=== PATIENT | female | born 1995 | race Caucasian/White ===

== ENCOUNTER 2018-03-06 04:48 | Inpatient (IN) | payer MEDICAID ==
[~2018-03-06] VITALS: Ht 160 cm; Wt 61.1 kg
[2018-03-06] MEDS ORDERED: DIPH,PERTUSS(ACELL),TET VAC/PF 0.5 ML IM-VACC ONE ×2 (05:00→05:14)
[2018-03-06] MEDS ORDERED: VANCOMYCIN PER PHARMACY IV ONE (05:00)
[2018-03-06] MEDS ORDERED: SODIUM CHLORIDE FLUSH 10ML SYR IVF ONE (05:00)
[2018-03-06 05:28] LABS: BASOPHILS # (AUTO) 0.03 x10^3/uL (0-0.1); BASOPHILS % (AUTO) 0 % (0-1); EOSINOPHILS # (AUTO) 0.56 x10^3/uL (0-0.4); EOSINOPHILS % (AUTO) 5 % (1-7); LYMPHOCYTES # (AUTO) 2.87 x10^3/uL (1-3.4); LYMPHOCYTES % (AUTO) 26 % (22-44); MD NO; MEAN CORPUSCULAR HGB CONC 33.9 g/dL (32.4-35.8); MEAN CORPUSCULAR VOLUME 85.6 fL (80-100); MEAN PLATELET VOLUME 8.8 fL (7.4-10.4); MONOCYTES # (AUTO) 1.06 x10^3/uL (0.2-0.8); MONOCYTES % (AUTO) 10 % (2-9); NEUTROPHILS % (AUTO) 59 % (42-75); PLATELET COUNT 314 x10^3/uL (130-400); RED BLOOD COUNT 5.09 x10^6/uL (3.82-5.3); RED CELL DISTRIBUTION WIDTH 13.7 % (9.6-15.2)
[2018-03-06] MEDS ORDERED: VANCOMYCIN 1,200 MG in SODIUM CHLORIDE 0.9% 250 ML IV ONE (05:30)
[2018-03-06] MEDS ORDERED: PHARMACOKINETIC CONSULTATION MC ONE (05:30)
[2018-03-06 05:38] LABS: ANION GAP 8 mmol/L (5-15); CALCIUM 9.6 mg/dL (8.5-10.1); CHLORIDE 107 mmol/L (98-107); CREATININE 0.84 mg/dL (0.55-1.02)
[2018-03-06] MEDS ORDERED: SODIUM CHLORIDE 0.9% 1,000ML IVBOLUS ONE (06:00)
[2018-03-06 08:58] VITALS: BP 102/48
[2018-03-06] MEDS ORDERED: ONDANSETRON 2MG/ML, 2ML IVPush PRN (09:00)
[2018-03-06] MEDS ORDERED: IBUPROFEN 600 MG TABLET PO PRN (09:00)
[2018-03-06] MEDS ORDERED: ACETAMINOPHEN 325 MG TABLET PO PRN (09:00)
[2018-03-06] MEDS ORDERED: VANCOMYCIN PMX 1GM/200ML 200 ML IV ONE (09:00)
[2018-03-06] MEDS ORDERED: KETOROLAC 30 MG/1 ML IV PRN (09:00)
[2018-03-06] MEDS ORDERED: SODIUM CHLORIDE FLUSH 10ML SYR IVF PRN (09:00)
[2018-03-06] MEDS ORDERED: hydrALAzine 20 MG/ML, 1ML IVPush PRN (09:00)
[2018-03-06] MEDS ORDERED: VANCOMYCIN PER PHARMACY MC PRN (09:00)
[2018-03-06] MEDS ORDERED: AMPICILLIN/SULBACTAM 3 GM in SODIUM CHLORIDE 0.9% 100 ML IV SCH (09:00)
[2018-03-06 09:05] LABS: HCT (SEDRATE) 43.6 % (34.6-47.8)
[2018-03-06] MEDS ORDERED: PHARMACOKINETIC MONITORING MC PRN (09:30)
[2018-03-06] MEDS: AZTREONAM 1 GM in SODIUM CHLORIDE 0.9% 50 ML IV SCH ×2 (10:32→17:12)
[2018-03-06] MEDS: SODIUM CHLORIDE 0.9% 1,000 ML IV SCH ×2 (10:32→15:35)
[2018-03-06] MEDS: POTASSIUM CHLORIDE 20 MEQ TAB.ER.PRT PO SCH ×2 (10:33→15:35)
[2018-03-06] MEDS ORDERED: GADOBUTROL 7.5 MMOL/7.5 ML PFS ONE (12:13)
[2018-03-06 14:04] VITALS: BP 101/63
[2018-03-06 17:48] LABS: MICROSCOPIC AUTO
[2018-03-06 17:49] LABS: CULTURE INDICATED? NO
[2018-03-06 17:59] LABS: AMPHETAMINE SCREEN, URINE Positive (Negative); BARBITURATE SCREEN, URINE Negative (Negative); BENZODIAZEPINE SCREEN, URINE Negative (Negative); CANNABINOID SCREEN, URINE Negative (Negative); COCAINE SCREEN, URINE Negative (Negative); METHADONE SCREEN, URINE Negative (Negative); OPIATE SCREEN, URINE Positive (Negative)
[2018-03-06] MEDS: VANCOMYCIN 1,200 MG in SODIUM CHLORIDE 0.9% 250 ML IV SCH (18:39)
[2018-03-06 20:04] VITALS: BP 99/53
[2018-03-07] MEDS: SODIUM CHLORIDE 0.9% 1,000 ML IV SCH ×3 (00:17→15:00)
[2018-03-07] MEDS: AZTREONAM 1 GM in SODIUM CHLORIDE 0.9% 50 ML IV SCH ×3 (01:29→20:22)
[2018-03-07 03:09] VITALS: BP 110/61
[2018-03-07 05:13] LABS: MEAN CORPUSCULAR HEMOGLOBIN 29.2 pg (27.0-34.8); MEAN CORPUSCULAR VOLUME 85.8 fL (80-100); PLATELET COUNT 271 x10^3/uL (130-400); RED BLOOD COUNT 4.51 x10^6/uL (3.82-5.3)
[2018-03-07 05:17] LABS: CHLORIDE 112 mmol/L (98-107)
[2018-03-07 05:25] LABS: ALANINE AMINOTRANSFERASE 17 U/L (12-78); ALBUMIN 2.9 g/dL (3.4-5.0); ALKALINE PHOSPHATASE 123 U/L (45-117); ANION GAP 9 mmol/L (5-15); BILIRUBIN,TOTAL 0.6 mg/dL (0.2-1.0); CALCIUM 8.1 mg/dL (8.5-10.1); CREATININE 0.47 mg/dL (0.55-1.02); TOTAL PROTEIN 6.2 g/dL (6.4-8.2)
[2018-03-07] MEDS: VANCOMYCIN 1,200 MG in SODIUM CHLORIDE 0.9% 250 ML IV SCH ×2 (05:33→17:48)
[2018-03-07 07:15] LABS: BASOPHILS # (AUTO) 0.03 x10^3/uL (0-0.1); BASOPHILS % (AUTO) 0 % (0-1); EOSINOPHILS % (AUTO) 3 % (1-7); LYMPHOCYTES # (AUTO) 2.49 x10^3/uL (1-3.4); LYMPHOCYTES % (AUTO) 21 % (22-44); MD SCAN; MONOCYTES # (AUTO) 1.45 x10^3/uL (0.2-0.8); MONOCYTES % (AUTO) 12 % (2-9); NEUTROPHILS # (AUTO) 7.51 x10^3/uL (1.8-6.8); NEUTROPHILS % (AUTO) 63 % (42-75)
[2018-03-07 07:27] VITALS: BP 135/75
[2018-03-07 12:55] VITALS: BP 116/64
[2018-03-07] MEDS ORDERED: BUPR8TAB PO (13:36)
[2018-03-07] MEDS ORDERED: METHADONE 5 MG TABLET ONE (14:06)
[2018-03-07] MEDS: METHADONE 10 MG TABLET PO SCH ×2 (14:08→21:17)
[2018-03-07] MEDS ORDERED: MAGNESIUM SULFATE 4 GM in SODIUM CHLORIDE 0.9% 100 ML IV ONE (15:30)
[2018-03-07] MEDS: POTASSIUM PHOSPHATE 44 MEQ in SODIUM CHLORIDE 0.9% 500 ML IV SCH ×2 (15:51→21:17)
[2018-03-07] MEDS: NICOTINE 21 MG/24 HR PATCH.TD24 TD SCH (15:51)
[2018-03-07 21:28] VITALS: BP 117/62
[2018-03-08 01:01] VITALS: BP 104/52
[2018-03-08] MEDS: AZTREONAM 1 GM in SODIUM CHLORIDE 0.9% 50 ML IV SCH ×3 (04:07→20:30)
[2018-03-08] MEDS: SODIUM CHLORIDE 0.9% 1,000 ML IV SCH ×3 (04:09→20:31)
[2018-03-08 05:54] LABS: BASOPHILS # (AUTO) 0.03 x10^3/uL (0-0.1); BASOPHILS % (AUTO) 0 % (0-1); EOSINOPHILS # (AUTO) 0.46 x10^3/uL (0-0.4); EOSINOPHILS % (AUTO) 5 % (1-7); LYMPHOCYTES # (AUTO) 3.02 x10^3/uL (1-3.4); LYMPHOCYTES % (AUTO) 34 % (22-44); MD NO; MEAN CORPUSCULAR HEMOGLOBIN 28.6 pg (27.0-34.8); MEAN CORPUSCULAR VOLUME 86.6 fL (80-100); MEAN PLATELET VOLUME 9.1 fL (7.4-10.4); MONOCYTES # (AUTO) 1.19 x10^3/uL (0.2-0.8); MONOCYTES % (AUTO) 13 % (2-9); NEUTROPHILS # (AUTO) 4.19 x10^3/uL (1.8-6.8); NEUTROPHILS % (AUTO) 47 % (42-75); PLATELET COUNT 248 x10^3/uL (130-400); RED BLOOD COUNT 4.72 x10^6/uL (3.82-5.3)
[2018-03-08 05:56] LABS: ALANINE AMINOTRANSFERASE 17 U/L (12-78); ALBUMIN 2.6 g/dL (3.4-5.0); ANION GAP 7 mmol/L (5-15); CALCIUM 7.9 mg/dL (8.5-10.1); CHLORIDE 114 mmol/L (98-107)
[2018-03-08 05:59] LABS: ALKALINE PHOSPHATASE 132 U/L (45-117); BILIRUBIN,TOTAL 0.2 mg/dL (0.2-1.0); CREATININE 0.42 mg/dL (0.55-1.02); VANCOMYCIN,TROUGH 7.5 mcg/mL (5.0-10.0)
[2018-03-08] MEDS: VANCOMYCIN 1,200 MG in SODIUM CHLORIDE 0.9% 250 ML IV SCH (06:05)
[2018-03-08 07:51] VITALS: BP 95/49
[2018-03-08 08:23] VITALS: BP 108/65
[2018-03-08] MEDS: NICOTINE 21 MG/24 HR PATCH.TD24 TD SCH (08:23)
[2018-03-08] MEDS: METHADONE 10 MG TABLET PO SCH (08:23)
[2018-03-08 13:02] VITALS: BP 115/71
[2018-03-08] MEDS: VANCOMYCIN 1,300 MG in SODIUM CHLORIDE 0.9% 250 ML IV SCH (14:55)
[2018-03-08 20:14] VITALS: BP 109/58
[2018-03-09] MEDS: VANCOMYCIN 1,300 MG in SODIUM CHLORIDE 0.9% 250 ML IV SCH ×2 (01:35→14:58)
[2018-03-09 03:22] VITALS: BP 103/54
[2018-03-09] MEDS: AZTREONAM 1 GM in SODIUM CHLORIDE 0.9% 50 ML IV SCH ×2 (03:47→12:52)
[2018-03-09] MEDS: SODIUM CHLORIDE 0.9% 1,000 ML IV SCH ×3 (03:48→16:20)
[2018-03-09 08:38] VITALS: BP 98/45
[2018-03-09] MEDS: NICOTINE 21 MG/24 HR PATCH.TD24 TD SCH (08:39)
[2018-03-09] MEDS ORDERED: BUPRENORPHINE HCL 8 MG BC SCH (09:00)
[2018-03-09] MEDS ORDERED: LINE600T37 PO (13:45)
== END 2018-03-09 19:00 | disposition home or self-care (01) | DRG 558 ==
LOC: ED 05:01 → EDIP 07:22 → 3NW 07:55
PROVIDERS: ADMIT Hospitalist; ATTEND Hospitalist
DX: M65.172 Other infective (teno)synovitis, left ankle and foot (principal); L03.115 Cellulitis of right lower limb; L03.116 Cellulitis of left lower limb; F11.23 Opioid dependence with withdrawal; S91.342A Puncture wound with foreign body, left foot, initial encounter; M65.171 Other infective (teno)synovitis, right ankle and foot; R45.1 Restlessness and agitation; E83.39 Other disorders of phosphorus metabolism; Z87.442 Personal history of urinary calculi; E83.42 Hypomagnesemia; W34.09XA Accidental discharge from other specified firearms, initial encounter; Y93.89 Activity, other specified; Y92.89 Other specified places as the place of occurrence of the external cause; Y99.8 Other external cause status; Z87.440 Personal history of urinary (tract) infections; Z72.0 Tobacco use
CPT/HCPCS: 0399T; 36415; 80048; 80053; 80202; 80307; 81001; 82040; 82550; 83605; 83735; 84100; 84145; 84703; 85025; 85651; 86140; 87040; 90471; 90715; 93306; 93970; 96374; 99285; A9585; G0378; J3370; J3475; J7030; J7040; J7050

== ENCOUNTER 2018-06-21 03:09 | Emergency (ER) | payer MEDICAID ==
[~2018-06-21] VITALS: Ht 160 cm; Wt 58.5 kg
[~2018-06-21 03:09] MED LIST: BUPR8TAB PO; LINE600T37 PO
--- NOTE | 2018-06-21 03:19 | NUR ---
PT. TO ED WITH C/O LEFT FLANK PAIN X 2 WEEKS OFF AND ON. CONSTANT OVER THE LAST 3 DAYS. 17 WEEKS . DENIES N/V/D/ ABD PAIN. REPORTS HX OF KIDNEY STONES SINCE AGE 7 WITH STENTS PLACED IN THE PAST. DR. RODRIGUEZ AT FOR EVAL. REQUESTED URINE SAMPLE FROM PT. AND SHE STATES "I JUST WENT RIGHT BEFORE I CAME HERE." AWARE OF NEED FOR THIS; CLEAN CATCH INSTRUCTIONS GIVEN.
[2018-06-21] MEDS ORDERED: ACETAMINOPHEN 500 MG TABLET ONE (03:26)
--- NOTE | 2018-06-21 03:29 | NUR ---
PT. MEDICATED PER MAR. LAB AT FOR BLOOD DRAW.
[2018-06-21] MEDS ORDERED: ACETAMINOPHEN 500 MG TABLET PO ONE (03:30)
[2018-06-21 03:39] LABS: BASOPHILS # (AUTO) 0.05 x10^3/uL (0-0.1); BASOPHILS % (AUTO) 0 % (0-1); EOSINOPHILS # (AUTO) 0.74 x10^3/uL (0-0.4); EOSINOPHILS % (AUTO) 5 % (1-7); LYMPHOCYTES # (AUTO) 3.54 x10^3/uL (1-3.4); LYMPHOCYTES % (AUTO) 22 % (22-44); MD NO; MEAN CORPUSCULAR HGB CONC 33.7 g/dL (32.4-35.8); MEAN PLATELET VOLUME 8.2 fL (7.4-10.4); MONOCYTES # (AUTO) 0.76 x10^3/uL (0.2-0.8); MONOCYTES % (AUTO) 5 % (2-9); NEUTROPHILS # (AUTO) 10.73 x10^3/uL (1.8-6.8); NEUTROPHILS % (AUTO) 68 % (42-75); PLATELET COUNT 338 x10^3/uL (130-400); RED BLOOD COUNT 4.59 x10^6/uL (3.82-5.3); RED CELL DISTRIBUTION WIDTH 14.7 % (9.6-15.2)
[2018-06-21 03:51] LABS: ALBUMIN 3.3 g/dL (3.4-5.0); ANION GAP 5 mmol/L (5-15); CALCIUM 8.8 mg/dL (8.5-10.1); CHLORIDE 108 mmol/L (98-107)
--- NOTE | 2018-06-21 04:09 | NUR ---
PT. HAS BEEN IN BR ATTEMPTING TO PROVIDE URINE SAMPLE. TECH WAITING FOR PT. TO FINISH IN BR IN ORDER TO COMPLETED IMAGING.
--- NOTE | 2018-06-21 04:26 | NUR ---
PT. WAS UNABLE TO PROVIDE UIRNE SAMPLE. US BEING PERFORMED NOW.
--- NOTE | 2018-06-21 05:09 | NUR ---
PATIENT DRANK WATER THAT SHE STATED THE DRDeny GAVE HER. PT. TO BR AGAIN TO ATTEMPT URINE SAMPLE.
[2018-06-21 05:30] LABS: CULTURE INDICATED? YES; MICROSCOPIC INDICATED
[2018-06-21 05:46] VITALS: BP 108/61
--- NOTE | 2018-06-21 05:46 | NUR ---
PT. RESTING ON [employer] WITH TV ON. ANA. PT. REPORTS PAIN IS BETTER AFTER TYLENOL. VS UPDATED. URINE CULTURE PENDING. CALL LIGHT IN REACH. DENIES NEEDS AT THIS TIME.
--- NOTE | 2018-06-21 05:51 | NUR ---
DR. RODRIGUEZ AT TO DISCUSS FINDINGS/POC WITH PT.
== END 2018-06-21 06:20 | disposition home or self-care (01) ==
LOC: ED 03:49
DX: O26.892 Other specified pregnancy related conditions, second trimester (principal); O99.332 Smoking (tobacco) complicating pregnancy, second trimester; R10.9 Unspecified abdominal pain; F17.210 Nicotine dependence, cigarettes, uncomplicated; Z3A.18 18 weeks gestation of pregnancy; Z72.9 Problem related to lifestyle, unspecified; Z87.442 Personal history of urinary calculi
CPT/HCPCS: 36415; 76770; 80048; 81001; 82040; 85025; 87086; 99284

== ENCOUNTER 2018-07-17 23:10 | Emergency (ER) | payer MEDICAID ==
[~2018-07-17] VITALS: Ht 160 cm; Wt 60.8 kg
[2018-07-17 23:11] VITALS: BP 118/69
--- NOTE | 2018-07-17 23:17 | NUR ---
L&D CONTACTED AND TO ASSESS PT DOWN IN ED.
[2018-07-17] MEDS ORDERED: DIPHENHYDRAMINE 25 MG CAPSULE PO ONE (23:30)
[2018-07-17] MEDS ORDERED: DIPHENHYDRAMINE 25 MG CAPSULE ONE (23:43)
[2018-07-17 23:53] LABS: BASOPHILS # (AUTO) 0.09 x10^3/uL (0-0.1); BASOPHILS % (AUTO) 1 % (0-1); EOSINOPHILS # (AUTO) 0.66 x10^3/uL (0-0.4); EOSINOPHILS % (AUTO) 6 % (1-7); LYMPHOCYTES # (AUTO) 2.61 x10^3/uL (1-3.4); LYMPHOCYTES % (AUTO) 22 % (22-44); MD NO; MEAN CORPUSCULAR HEMOGLOBIN 29.3 pg (27.0-34.8); MEAN CORPUSCULAR VOLUME 86.3 fL (80-100); MEAN PLATELET VOLUME 8.2 fL (7.4-10.4); MONOCYTES # (AUTO) 0.96 x10^3/uL (0.2-0.8); MONOCYTES % (AUTO) 8 % (2-9); NEUTROPHILS # (AUTO) 7.66 x10^3/uL (1.8-6.8); NEUTROPHILS % (AUTO) 64 % (42-75); PLATELET COUNT 283 x10^3/uL (130-400); RED BLOOD COUNT 3.92 x10^6/uL (3.82-5.3); RED CELL DISTRIBUTION WIDTH 14.6 % (9.6-15.2)
--- NOTE | 2018-07-18 | NUR ---
PT RESTING QUIETLY WITH EYES CLOSED, NO DISTRESS NOTED
[2018-07-18 00:05] LABS: ALANINE AMINOTRANSFERASE 20 U/L (12-78); ALBUMIN 2.8 g/dL (3.4-5.0); ANION GAP 7 mmol/L (5-15); CALCIUM 8.6 mg/dL (8.5-10.1); CHLORIDE 111 mmol/L (98-107); CREATININE 0.56 mg/dL (0.55-1.02)
[2018-07-18 00:07] LABS: ALKALINE PHOSPHATASE 117 U/L (45-117); BILIRUBIN,TOTAL < 0.1 mg/dL (0.2-1.0); TOTAL PROTEIN 6.1 g/dL (6.4-8.2)
--- NOTE | 2018-07-18 01:17 | NUR ---
ATTEMPTED TO GET PT TO CHANGE AND GO TO DISCHARGE, PT KEEPS GOING BACK TO SLEEP AFTER i LEAVE. TRIED 4 TIMES, CALLED SECURITY
== END 2018-07-18 01:48 | disposition home or self-care (01) ==
LOC: ED 23:41
DX: O26.892 Other specified pregnancy related conditions, second trimester (principal); E88.09 Other disorders of plasma-protein metabolism, not elsewhere classified; R60.0 Localized edema; Z3A.20 20 weeks gestation of pregnancy; Z72.9 Problem related to lifestyle, unspecified
CPT/HCPCS: 36415; 80053; 85025; 99283

== ENCOUNTER 2018-08-28 13:11 | Emergency (ER) | payer MEDICAID ==
[~2018-08-28] VITALS: Ht 160 cm; Wt 63.0 kg
--- NOTE | 2018-08-28 14:32 | NUR ---
PT TRANSFERRED FROM [facility] TO ROOM. REPORT RECEIVED FROM REBECCA ROBLEDO. ASSUMED CARE OF PT. PT AO X 4. PT C/O DISCHARGE X A FEW WEEKS DESCRIBED WHITEISH. PT DENIES N/V/D OR PAINFUL URINATION. PT REPORTS RIGHT SIDED ABD CRAMPING, BUT DENIES BLEEDING. PT IS APPROX 27 WEEKS . L&D CALLED TO CHECK HEART TONES. HEART TONES STRONG AND EASY TO FIND. US AT BEDSIDE.
[2018-08-28 14:39] LABS: BASOPHILS # (AUTO) 0.05 x10^3/uL (0-0.1); BASOPHILS % (AUTO) 0 % (0-1); EOSINOPHILS % (AUTO) 1 % (1-7); LYMPHOCYTES # (AUTO) 2.27 x10^3/uL (1-3.4); LYMPHOCYTES % (AUTO) 18 % (22-44); MD NO; MEAN CORPUSCULAR HEMOGLOBIN 29.6 pg (27.0-34.8); MEAN CORPUSCULAR HGB CONC 32.9 g/dL (32.4-35.8); MEAN CORPUSCULAR VOLUME 90.1 fL (80-100); MEAN PLATELET VOLUME 7.9 fL (7.4-10.4); MONOCYTES # (AUTO) 0.68 x10^3/uL (0.2-0.8); MONOCYTES % (AUTO) 5 % (2-9); NEUTROPHILS # (AUTO) 9.87 x10^3/uL (1.8-6.8); NEUTROPHILS % (AUTO) 76 % (42-75); PLATELET COUNT 343 x10^3/uL (130-400); RED BLOOD COUNT 4.47 x10^6/uL (3.82-5.3); RED CELL DISTRIBUTION WIDTH 14.6 % (9.6-15.2)
--- NOTE | 2018-08-28 14:40 | NUR ---
L&D HAS BEEN TO BEDSIDE AND REQUESTS THAT PT BE BROUGHT UP TO L&D FOR FURTHER EVAL OF ABD CRAMPING/DISCHARGE. PER L&D NURSE THEY WILL ACCEPT PT AND DC PT FROM L&D. WILL PROVIDE PT WITH ABX FOR DENTAL COMPLAINT. PA JJ AWARE AND POC DISCUSSED WITH PA AND PT. PT VERBALIZES UNDERSTANDING AND AGREES TO PLAN.
[2018-08-28 14:50] LABS: ALANINE AMINOTRANSFERASE 17 U/L (12-78); ALBUMIN 3.2 g/dL (3.4-5.0); ANION GAP 7 mmol/L (5-15); CHLORIDE 107 mmol/L (98-107); CREATININE 0.65 mg/dL (0.55-1.02)
[2018-08-28 15:05] LABS: ALKALINE PHOSPHATASE 140 U/L (45-117); BILIRUBIN,TOTAL 0.1 mg/dL (0.2-1.0); TOTAL PROTEIN 7.5 g/dL (6.4-8.2)
[2018-08-28 15:18] LABS: MICROSCOPIC AUTO
[2018-08-28 15:23] VITALS: BP 117/72
--- NOTE | 2018-08-28 15:23 | NUR ---
PT CURRENTLY REPORTS CRAMPING IS DECREASED. PT WHEELED TO L&D AND REPORT TO L&d REBECCA MCDANIEL.
[2018-08-28 15:25] LABS: CULTURE INDICATED? NO
[2018-08-28] MEDS ORDERED: PREN1TAB60 PO (16:02)
[2018-08-28] MEDS ORDERED: HYDR25CA PO (16:38)
[2018-08-28] MEDS ORDERED: RANI150T23 PO (16:38)
== END 2018-08-28 15:25 | disposition home or self-care (01) ==
LOC: ED 14:51
DX: O99.612 Diseases of the digestive system complicating pregnancy, second trimester (principal); K08.89 Other specified disorders of teeth and supporting structures; R10.84 Generalized abdominal pain; Z3A.27 27 weeks gestation of pregnancy
CPT/HCPCS: 36415; 76815; 80053; 81001; 84702; 85025; 99284

== ENCOUNTER 2018-08-28 15:26 | Outpatient (CLI) | payer MEDICAID ==
[~2018-08-28] VITALS: Ht 160 cm; Wt 61.8 kg
[2018-08-28 15:48] VITALS: BP 117/66
[2018-08-28] MEDS ORDERED: PREN1TAB60 PO (16:02)
[2018-08-28] MEDS ORDERED: HYDR25CA PO (16:38)
[2018-08-28] MEDS ORDERED: RANI150T23 PO (16:38)
[2018-08-28 18:45] LABS: MEAN CORPUSCULAR HGB CONC 33.2 g/dL (32.4-35.8); MEAN CORPUSCULAR VOLUME 90.4 fL (80-100); MEAN PLATELET VOLUME 7.8 fL (7.4-10.4); PLATELET COUNT 324 x10^3/uL (130-400); RED BLOOD COUNT 4.05 x10^6/uL (3.82-5.3); RED CELL DISTRIBUTION WIDTH 14.8 % (9.6-15.2)
[2018-08-28 18:59] LABS: AMPHETAMINE SCREEN, URINE Negative (Negative); BARBITURATE SCREEN, URINE Negative (Negative); BENZODIAZEPINE SCREEN, URINE Negative (Negative); CANNABINOID SCREEN, URINE Negative (Negative); COCAINE SCREEN, URINE Negative (Negative); METHADONE SCREEN, URINE Negative (Negative); OPIATE SCREEN, URINE Negative (Negative)
[2018-08-28 19:32] LABS: MD YES
[2018-08-28 19:34] LABS: BAND#(MANUAL) 1.02 x10^3/uL; BANDS%(MANUAL) 7 % (0-7); EOS#(MANUAL) 0.15 x10^3/uL (0.0-0.4); EOS% (MANUAL) 1 % (1-7); LYMPH#(MANUAL) 3.36 x10^3/uL (1-3.4); LYMPHS% (MANUAL) 23 % (22-44); METAMYELOCYTES# (MANUAL) 0.29 x10^3/uL (0-0); METAMYELOCYTES% (MANUAL) 2 % (0-1); MONOS#(MANUAL) 1.17 x10^3/uL (0.3-2.7); MONOS% (MANUAL) 8 % (2-9); SEG#(MANUAL) 8.61 x10^3/uL (1.8-6.8); SEGS% (MANUAL) 59 % (42-75)
[2018-08-28 19:35] LABS: <PLATELET ESTIMATE> ADEQUATE; <PLT MORPHOLOGY> NORMAL PLT MORPH; <RBC MORPHOLOGY> NORMAL
== END 2018-08-28 19:11 | disposition home or self-care (01) ==
LOC: LDOP 15:26
PROVIDERS: ATTEND Obstetrics & Gynecology
DX: O46.92 Antepartum hemorrhage, unspecified, second trimester (principal); Z3A.27 27 weeks gestation of pregnancy
CPT/HCPCS: 36415; 59025; 80307; 82950; 82962; 85025; 86592; 86762; 86850; 86900; 87340; 87806; 99201; G0463; G0475

== ENCOUNTER 2018-09-18 13:56 | Outpatient (CLI) | payer MEDICAID ==
[~2018-09-18] VITALS: Ht 160 cm; Wt 66.0 kg
[~2018-09-18 13:56] MED LIST changes: +HYDR25CA PO; +PREN1TAB60 PO; +RANI150T23 PO
[2018-09-18 14:41] LABS: MICROSCOPIC NOT IND
[2018-09-18 14:51] LABS: AMPHETAMINE SCREEN, URINE Negative (Negative); BARBITURATE SCREEN, URINE Negative (Negative); BENZODIAZEPINE SCREEN, URINE Negative (Negative); CANNABINOID SCREEN, URINE Negative (Negative); COCAINE SCREEN, URINE Negative (Negative); METHADONE SCREEN, URINE Negative (Negative); OPIATE SCREEN, URINE Negative (Negative)
== END 2018-09-18 16:07 | disposition home or self-care (01) ==
LOC: LDOP 13:56
PROVIDERS: ATTEND Obstetrics & Gynecology
DX: O26.893 Other specified pregnancy related conditions, third trimester (principal); O99.333 Smoking (tobacco) complicating pregnancy, third trimester; Z3A.30 30 weeks gestation of pregnancy
CPT/HCPCS: 59025; 80307; 81003; 87086; 99211; G0463

== ENCOUNTER 2018-10-06 15:43 | Emergency (ER) | payer MEDICAID ==
[~2018-10-06] VITALS: Ht 160 cm; Wt 67.5 kg
[2018-10-06 15:49] VITALS: BP 118/75
--- NOTE | 2018-10-06 16:07 | NUR ---
DENTAL PAIN. REQUESTING ANTIBIOTICS WHILE AWAITING TO SEE DENTIST
== END 2018-10-06 16:28 | disposition home or self-care (01) ==
LOC: ED 16:09
DX: O26.893 Other specified pregnancy related conditions, third trimester (principal); K02.9 Dental caries, unspecified; Z3A.34 34 weeks gestation of pregnancy; Z76.0 Encounter for issue of repeat prescription; Z88.0 Allergy status to penicillin
CPT/HCPCS: 99283

== ENCOUNTER 2018-10-19 21:15 | Outpatient (CLI) | payer MEDICAID ==
[~2018-10-19] VITALS: Ht 160 cm; Wt 64.0 kg
[2018-10-19 21:26] VITALS: BP 112/72
[2018-10-19 21:36] LABS: MICROSCOPIC INDICATED
[2018-10-19 21:44] LABS: AMPHETAMINE SCREEN, URINE Negative (Negative); BARBITURATE SCREEN, URINE Negative (Negative); BENZODIAZEPINE SCREEN, URINE Negative (Negative); CANNABINOID SCREEN, URINE Negative (Negative); COCAINE SCREEN, URINE Negative (Negative); METHADONE SCREEN, URINE Negative (Negative); OPIATE SCREEN, URINE Negative (Negative)
== END 2018-10-19 22:15 | disposition home or self-care (01) ==
LOC: LDOP 21:15
PROVIDERS: ATTEND Obstetrics & Gynecology
DX: O26.893 Other specified pregnancy related conditions, third trimester (principal); R10.2 Pelvic and perineal pain; Z3A.35 35 weeks gestation of pregnancy
CPT/HCPCS: 59025; 80307; 81001; 87086; 99211; G0463

== ENCOUNTER 2018-11-03 01:21 | Outpatient (CLI) | payer MEDICAID ==
[~2018-11-03] VITALS: Ht 160 cm; Wt 70.5 kg
[~2018-11-03 01:21] MED LIST changes: +LINE600T2 PO; -LINE600T37 PO; +RANI-467 PO; -RANI150T23 PO
[2018-11-03 01:50] VITALS: BP 113/66
[2018-11-03] MEDS ORDERED: HYDR-826 PO (02:33)
[2018-11-03 02:34] LABS: MICROSCOPIC AUTO
[2018-11-03 02:35] LABS: CULTURE INDICATED? NO
[2018-11-03 02:43] LABS: AMPHETAMINE SCREEN, URINE Negative (Negative); BARBITURATE SCREEN, URINE Negative (Negative); BENZODIAZEPINE SCREEN, URINE Negative (Negative); CANNABINOID SCREEN, URINE Negative (Negative); COCAINE SCREEN, URINE Negative (Negative); METHADONE SCREEN, URINE Negative (Negative); OPIATE SCREEN, URINE Negative (Negative)
[2018-11-22] MEDS ORDERED: IBUP-1222 PO (15:07)
[2018-11-22] MEDS ORDERED: OXYC-302 PO (15:07)
== END 2018-11-03 03:05 | disposition home or self-care (01) ==
LOC: LDOP 01:21
PROVIDERS: ATTEND Obstetrics & Gynecology
DX: O36.8130 Decreased fetal movements, third trimester, not applicable or unspecified (principal); Z3A.37 37 weeks gestation of pregnancy
CPT/HCPCS: 59025; 80307; 81001; 99211; G0463

== ENCOUNTER 2018-11-17 21:49 | Outpatient (CLI) | payer MEDICAID ==
[~2018-11-17] VITALS: Ht 160 cm; Wt 74.1 kg
[2018-11-17 22:15] VITALS: BP 114/65
== END 2018-11-17 23:20 | disposition home or self-care (01) ==
LOC: LDOP 21:49
PROVIDERS: ATTEND Obstetrics & Gynecology
DX: O42.92 Full-term premature rupture of membranes, unspecified as to length of time between rupture and onset of labor (principal)
CPT/HCPCS: 59025; 80307; 89060; 99211; G0463; Q0114

== ENCOUNTER 2018-11-18 23:37 | Outpatient (CLI) | payer MEDICAID ==
[~2018-11-18] VITALS: Ht 160 cm; Wt 74.0 kg
== END 2018-11-19 01:55 | disposition home or self-care (01) ==
LOC: LDOP 23:37
PROVIDERS: ATTEND Obstetrics & Gynecology
DX: O26.893 Other specified pregnancy related conditions, third trimester (principal); R10.9 Unspecified abdominal pain; Z3A.39 39 weeks gestation of pregnancy
CPT/HCPCS: 59025; 80307; 81001; 87086; 99211; G0463